=== PATIENT | male | born 1970 | race American Indian/Alaskan Native ===

== ENCOUNTER 2017-10-05 11:50 | Emergency (ER) | payer OTHER ==
--- NOTE | 2017-10-05 12:27 | EDM.PDOC ---
ED HPI GENERAL MEDICAL PROBLEM - General Chief Complaint: ENT Problem Stated Complaint: EAR PAIN Time Seen by Provider: 10/05/17 12:15 Source of Information: Reports: Patient History Limitations: Reports: No Limitations - History of Present Illness INITIAL COMMENTS - FREE TEXT/NARRATIVE: 46 yo male has had R ear pain since cleaning that ear with a Q tip yesterday. No drainage, bleeding, or decreased hearing. No self tx. 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 (see below) (none) ear Pain Score (Numeric/FACES): 5 - Related Data Allergies Allergy/AdvReac Type Severity Reaction Status Date / Time No Known Allergies Allergy Verified 10/05/17 12:09 Home Meds: Home Meds Folic Acid [Folic Acid] 1 mg PO DAILY 10/05/17 [History] PARoxetine HCl [Paroxetine HCl] 20 mg PO DAILY 10/05/17 [History] QUEtiapine [SEROquel] 300 mg PO BEDTIME 10/05/17 [History] Vitamin B Complex 1 tab PO DAILY 10/05/17 [History] Past Medical History HEENT History: Reports: Impaired Vision Neurological History: Reports: Concussion Psychiatric History: Reports: Bipolar, Depression Endocrine/Metabolic History: Reports: Diabetes, Type II - Past Surgical History GI Surgical History: Reports: Cholecystectomy, EGD Social & Family History - Tobacco Use Smoking Status *Q: Never Smoker - Recreational Drug Use Recreational Drug Use: Yes Recreational Drug Type: Reports: Marijuana/Hashish, Methamphetamine Recreational Drug Use Frequency: Weekly Recreational Drug Last Use: 10/04/17 ED ROS ENT - Review of Systems Review Of Systems: See Below Constitutional: Reports: No Symptoms HEENT: Reports: Ear Pain (Right), Rhinitis (mild, onset today). Denies: Ear Discharge, Eye Discharge, Hearing Loss Respiratory: Reports: No Symptoms Cardiovascular: Reports: No Symptoms GI/Abdominal: Reports: No Symptoms : Reports: No Symptoms Skin: Reports: No Symptoms Neurological: Reports: No Symptoms ED EXAM, ENT - Physical Exam Exam: See Below Exam Limited By: No Limitations General Appearance: Alert, WD/WN, No Apparent Distress Eye Exam: Bilateral Eye: Normal Inspection Ears: Normal External Exam, Normal Canal, Hearing Grossly Normal, Normal TMs, TM Obscured by Cerumen (bottom 1/3 of TM is obscured by cerumen.). No: Canal Blood, Canal Discharge, Canal Swelling, TM Bulging, TM Dullness, TM Erythema, TM Blood, TM Fluid, TM Perforation, TM Vesicles, Cerumen Impaction Nose: Normal Inspection, Normal Mucousa, No Blood Mouth/Throat: Normal Inspection, Normal Lips, Normal Oropharynx, Normal Teeth Head: Atraumatic, Normocephalic Neck: Normal Inspection Respiratory/Chest: No Respiratory Distress, No Accessory Muscle Use Course - Vital Signs Last Recorded V/S: Last Vital Signs Temp 36.2 C 10/05/17 12:08 Pulse 85 10/05/17 12:08 Resp 16 10/05/17 12:08 BP 147/93 H 10/05/17 12:08 Pulse Ox 96 10/05/17 12:08 Departure - Departure Time of Disposition: 12:26 Disposition: Home, Self-Care 01 Condition: Good Clinical Impression: Ear canal abrasion Qualifiers: Encounter type: initial encounter Laterality: right Qualified Code(s): S00.411A - Abrasion of right ear, initial encounter - Discharge Information Referrals: PCP,None [Primary Care Provider] - Forms: ED Department Discharge Additional Instructions: Acetaminophen as needed for pain relief. Recheck for ear drainage, fever, or decreased hearing.
== END 2017-10-05 12:35 | disposition home or self-care (01) ==
LOC: JP.ED 11:50
DX: S00.411A Abrasion of right ear, initial encounter (principal); Y29.XXXA Contact with blunt object, undetermined intent, initial encounter
CPT/HCPCS: 99282; 99283